=== PATIENT | male | born 1930 | race Caucasian/White ===

== ENCOUNTER 2018-11-11 07:20 | Outpatient (CLI) | payer MEDICARE ==
[2018-11-11] MEDS ORDERED: Iopamidol 370 76% 100 ML VIAL ONE (09:00)
--- NOTE | 2018-11-11 20:23 | CT ---
CT ABDOMEN AND PELVIS WITH CONTRAST 11/11/18 Comparison is made with a CT of the pelvis done without contrast on 10/23/17 at [facility]. Severe left hydronephrosis is present. The left ureter is dilated down to about the S1, S2 level. At that point, one sees an irregular mass density that is about 4.5 cm wide. The ureter assumes a somewh at more normal caliber after that into the bladder, though it is still slightly dilated thereafter. T meron mass density is no doubt involved in the obstruction. No such mass density was seen on the 2018 pe lvis scan, though that did not show the abdomen to assess the upper parts. Concerns would include ure teral neoplasia such as transitional cell, neoplastic involvement of lymph nodes in the vicinity of t meron left iliac vessels or a metastatic deposit from elsewhere. Further work up will be needed. The lung bases are clear. The liver has three subcentimeter cystic areas in the right lobe. Statistic ally, these are more likely benign than not. The hepatic size is normal. The spleen appears normal as does the pancreas. The right kidney appears normal. There is no sign of adrenal mass. There is incre ased layering density in the patient's gallbladder suggesting either small stones or very echogenic s ludge. The abdominal aorta is normal in caliber. The bowel shows no dilation or bowel wall thickening of concern. There is no free air or free fluid. CT of the pelvis was remarkable mainly for the mass density in the left iliac region which is partial ly obstructing the left ureter. No free fluid was seen in the pelvis. The prostate is rather large me asuring about 5.5 cm in diameter. The bony pelvis showed no sign of destructive or sclerotic lesions. There are severe degenerative changes in the facet joints of the spine. IMPRESSION: Severe left hydronephrosis and hydroureter down to a joint at about the S1 level in the distal left u reter. A 4.5 cm irregular mass density surrounds the ureter at this point and is undoubtedly the caus e for the obstruction. It should be assumed to be neoplastic until proven otherwise. Code T POS: HOME
== END 2018-11-11 07:21 | disposition home or self-care (01) ==
LOC: BURCT 07:20
PROVIDERS: ATTEND Family Medicine
DX: R10.2 Pelvic and perineal pain (principal); G89.29 Other chronic pain; N13.30 Unspecified hydronephrosis; N28.89 Other specified disorders of kidney and ureter
CPT/HCPCS: 74177; Q9967

== ENCOUNTER 2018-12-02 09:12 | Outpatient (CLI) | payer MEDICARE ==
--- NOTE | 2018-12-02 15:48 | CT ---
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 A xial slices were acquired followed by coronal and sagittal reconstructions. FINDINGS: No mediastinal mass or worrisome adenopathy was seen. The largest individual node was located just an terior to the bifurcation of the trachea and measured 1.4 cm in size. All others are less. There is a large calcified node just to the left of the aortic arch, as well as a calcified granuloma in the le ft upper lobe, both signifying prior granulomatous disease. There is a little low density in the infe rior part of the left lobe of the thyroid, but this may be partially artifactual. Given the patient's age and other problems, I feel further work up of this is not really in order. The ascending aorta i s mildly dilated at 4.7 cm. Only faint calcifications are seen in the coronary arteries. There is no sign of pericardial fluid. No pleural effusion is present. The lungs are clear. There is no sign of p ulmonary mass. Scans into the upper abdomen show no adrenal mass. There are at least three small 1 cm cystic appeari ng areas in the right lobe of the liver. These are more likely benign than not. Some gallstones are s uggested in the gallbladder. There is left hydronephrosis but a ureteral stent has been placed. The u pper pigtail can be seen coiled in the left renal pelvis and lower pole collecting system. No areas o f bony destruction or signs of sclerotic metastases were seen. IMPRESSION: No acute thoracic findings. POS: HOME
== END 2018-12-02 09:13 | disposition home or self-care (01) ==
LOC: BURCT 09:12
PROVIDERS: ATTEND Internal Medicine Hematology & Oncology
DX: C66.2 Malignant neoplasm of left ureter (principal)
CPT/HCPCS: 71260